=== PATIENT | female | born 1950 | race Caucasian/White ===

== ENCOUNTER 2017-05-11 10:00 | Inpatient (IN) | payer OTHER ==
[2017-05-11] MEDS ORDERED: ZANTAC300 MG (14:40)
[2017-05-11] MEDS ORDERED: CILOSTAZOL50 MG (14:40)
[2017-05-11] MEDS ORDERED: CATAFLAN (14:41)
[2017-05-11] MEDS ORDERED: LIPITOR80 MG (14:41)
[2017-05-11] MEDS ORDERED: NEURONTIN 100 MG (14:41)
[2017-05-11] MEDS ORDERED: BUSPIRONE HCL10 MG (14:42)
[2017-05-11] MEDS ORDERED: GLUCOSAMINE1000 MG (14:42)
[2017-05-11] MEDS ORDERED: VITAMIN E400 UNI6 (14:42)
[2017-05-11] MEDS ORDERED: BUSPAR 10 MG (14:42)
[2017-05-19] MEDS ORDERED: NORFLEX100MG PO (09:10)
[2017-05-19] MEDS ORDERED: NeurRONTin 100mg cap PO (09:10)
[2017-05-19] MEDS ORDERED: XARELTO10 MG PO (09:10)
[2017-05-19] MEDS ORDERED: TRAMADOL HCL50 MG PO (09:10)
== END 2017-05-19 17:33 | DRG 470 ==
LOC: SURH 05-17 10:00 → SURG 05-17 11:19 → O/R 05-17 11:19 → SURH 05-17 13:30 → SURG 05-17 17:23
PROVIDERS: Orthopaedic Surgery
PROC: 0SRC0J9 Replacement of Right Knee Joint with Synthetic Substitute, Cemented, Open Approach (ICD-10-PCS; principal; 2017-05-17 13:30)
DX: M17.11 Unilateral primary osteoarthritis, right knee (principal); D62 Acute posthemorrhagic anemia; E03.8 Other specified hypothyroidism